=== PATIENT | female | born 1995 | race Two or more races ===

== ENCOUNTER 2025-04-22 10:07 | Emergency (ER) | payer OTHER, SELFPAY ==
[2025-04-22 10:15] VITALS: BP 124/82; PULSE 93; RESP 16; TEMP 36.8; O2SAT 97; BMI 24.5
[2025-04-22 10:17] VITALS: BP 114/90; PULSE 83; RESP 16; TEMP 36.8; O2SAT 98
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
--- NOTE | 2025-04-22 10:50 | XR_ITS ---
Examination: Left hip AP, lateral, AP pelvis 3 views Technique: Hip AP lateral, AP pelvis, 3 views Exam date and time: April 22, 2025, 1110 hours INDICATIONS: Injury to the left hip today, left hip pain FINDINGS: No left hip fracture or dislocation Right hip bones of the pelvis intact IMPRESSION: No acute hip or pelvic fracture.
--- NOTE | 2025-04-22 10:50 | XR_ITS ---
EXAMINATION: Lumbar spine 3 views TECHNIQUE: AP lateral and coned lateral lower lumbar spine 3 views Date and time: April 22, 2025, 1122 hours INDICATIONS: Injury to the lower back today Lower back pain FINDINGS: Satisfactory alignment lumbar vertebral bodies. No lumbar fracture or significant lumbar disc narrowing IMPRESSION: No lumbar fracture
[2025-04-22] MEDS: ACETAMINOPHEN 325 MG TABLET 650 MG PO (10:58)
[2025-04-22] MEDS: KETOROLAC INJ 30 MG/ML VIAL IM (10:59)
[2025-04-22 13:18] VITALS: BP 119/87; PULSE 75; RESP 17; TEMP 37.1; O2SAT 100
== END 2025-04-22 13:19 | disposition home or self-care (01) ==
PROVIDERS: PCP Nurse Practitioner Family
DX: S70.02XA Contusion of left hip, initial encounter (principal); Y04.2XXA Assault by strike against or bumped into by another person, initial encounter; Y99.0 Civilian activity done for income or pay
CPT/HCPCS: 72020; 73502; 96372; 99283; J1885; A9270